=== PATIENT | female | born 1940 | race Caucasian/White ===

== ENCOUNTER → 2019-03-13 | Outpatient (CLI) | payer MEDICARE ==
[~2019-03-13] MED LIST: ALBU8.5H8 INH; AMLO-150 PO; FLUT1DIS3 INH; SPIR50TA4 PO
[2019-03-13 12:44] LABS: BASOPHILS # (AUTO) 0.04 x10^3/uL (0-0.1); BASOPHILS % (AUTO) 1 % (0-1); EOSINOPHILS # (AUTO) 0.09 x10^3/uL (0-0.4); EOSINOPHILS % (AUTO) 1 % (1-7); LYMPHOCYTES # (AUTO) 1.61 x10^3/uL (1-3.4); LYMPHOCYTES % (AUTO) 22 % (22-44); MD NO; MEAN CORPUSCULAR HEMOGLOBIN 33.6 pg (27.0-34.8); MEAN CORPUSCULAR HGB CONC 33.3 g/dL (32.4-35.8); MEAN PLATELET VOLUME 8.2 fL (7.4-10.4); MONOCYTES % (AUTO) 8 % (2-9); NEUTROPHILS # (AUTO) 4.87 x10^3/uL (1.8-6.8); NEUTROPHILS % (AUTO) 68 % (42-75); PLATELET COUNT 324 x10^3/uL (130-400); RED BLOOD COUNT 4.47 x10^6/uL (3.82-5.3); RED CELL DISTRIBUTION WIDTH 13.6 % (9.6-15.2)
[2019-03-13 12:54] LABS: ANION GAP 7 mmol/L (5-15); CALCIUM 9.1 mg/dL (8.5-10.1); CHLORIDE 103 mmol/L (98-107); CREATININE 0.79 mg/dL (0.55-1.02)
== END | disposition home or self-care (01) ==
LOC: STAR 11:25
PROVIDERS: ATTEND Orthopaedic Surgery
DX: Z01.818 Encounter for other preprocedural examination (principal); M17.11 Unilateral primary osteoarthritis, right knee; R94.31 Abnormal electrocardiogram [ECG] [EKG]
CPT/HCPCS: 36415; 80048; 85025; 87081; 93005

== ENCOUNTER 2019-03-24 07:54 | Inpatient (IN) | payer MEDICARE ==
[~2019-03-24] VITALS: Ht 160 cm; Wt 62.0 kg
[~2019-03-24 07:54] MED LIST changes: +EPINEPHRINE 1 MG/ML, 1ML ONE; +KETOROLAC 60 MG/2 ML ONE; +ROPIvacaine/PF 0.2%, 20 ML ONE; +SODIUM CHLORIDE 0.9% 50 ML ONE; +TRANEXAMIC ACID 100 MG/ML, 10ML ONE
[2019-03-24] MEDS ORDERED: LACTATED RINGERS 1,000 ML IV SCH (08:43)
[2019-03-24] MEDS ORDERED: GABAPENTIN 300 MG CAPSULE PO ONE (09:00)
[2019-03-24] MEDS ORDERED: ACETAMINOPHEN 500 MG TABLET PO ONE (09:00)
[2019-03-24] MEDS ORDERED: FENTANYL PF 250 MCG/5ML ONE (10:02)
[2019-03-24] MEDS ORDERED: MIDAZOLAM 1 MG/ML, 2ML ONE (10:02)
[2019-03-24] MEDS ORDERED: DEXAMETHASONE 4 MG/ML, 1ML ONE (11:56)
[2019-03-24] MEDS ORDERED: ONDANSETRON 2MG/ML, 2ML ONE (11:56)
[2019-03-24] MEDS ORDERED: PROPOFOL 10 MG/ML, 20ML ONE (11:56)
[2019-03-24] MEDS ORDERED: CEFAZOLIN 1,000 MG ONE (11:56)
[2019-03-24] MEDS ORDERED: HYDROmorphone 2 MG/ML, 1ML IVPush PRN ×2 (12:00→13:00)
[2019-03-24] MEDS ORDERED: hydrALAzine 20 MG/ML, 1ML IV PRN ×2 (12:00→13:30)
[2019-03-24] MEDS ORDERED: ALBUTEROL SULFATE 2.5 MG/3 ML NPPB PRN ×2 (12:00→14:30)
[2019-03-24] MEDS ORDERED: OXYcodone 5 MG/5 ML ORAL.SOL UDC PO PRN (12:00)
[2019-03-24] MEDS ORDERED: ALBUTEROL/IPRATROPIUM 2.5MG/0.5MG, 3 ML NPPB PRN (12:00)
[2019-03-24] MEDS ORDERED: METOPROLOL 1 MG/ML, 5ML IV PRN (12:00)
[2019-03-24] MEDS ORDERED: ONDANSETRON 2MG/ML, 2ML IV PRN (12:00)
[2019-03-24] MEDS ORDERED: FENTANYL PF 100 MCG/2ML IV PRN (12:00)
[2019-03-24] MEDS ORDERED: MIDAZOLAM 1 MG/ML, 2ML IV PRN (12:00)
[2019-03-24] MEDS ORDERED: TRANEXAMIC ACID 1,000 MG in SODIUM CHLORIDE 0.9% 100 ML IVPB ONE (12:55)
[2019-03-24] MEDS ORDERED: ONDANSETRON 2MG/ML, 2ML IVPush PRN (13:00)
[2019-03-24] MEDS ORDERED: HYDROcodone/APAP 5/325 TABLET PO PRN (13:00)
[2019-03-24] MEDS ORDERED: DIAZEPAM 5 MG TABLET PO PRN (13:00)
[2019-03-24] MEDS ORDERED: DIPHENHYDRAMINE 50 MG CAPSULE PO PRN (13:00)
[2019-03-24] MEDS ORDERED: SENNA/DOCUSATE TABLET PO PRN (13:00)
[2019-03-24] MEDS ORDERED: ALUMINUM/MAG/SIMETHICONE 30 ML UDC PO PRN (13:00)
[2019-03-24] MEDS ORDERED: ZOLPIDEM 5MG TABLET PO PRN (13:00)
[2019-03-24] MEDS ORDERED: POLYETHYLENE GLYCOL 17 GM PACKET PO PRN (13:00)
[2019-03-24] MEDS ORDERED: PSYLLIUM PACKET PO PRN (13:00)
[2019-03-24] MEDS ORDERED: MAGNESIUM HYDROXIDE 8%, 30ML UDC PO PRN (13:00)
[2019-03-24] MEDS ORDERED: PROMETHAZINE 25 MG/ML, 1ML IM PRN (13:00)
[2019-03-24] MEDS ORDERED: PROMETHAZINE 12.5 MG SUPP PR PRN (13:00)
[2019-03-24] MEDS ORDERED: BISACODYL 10 MG SUPP PR PRN (13:00)
[2019-03-24] MEDS: ACETAMINOPHEN 500 MG TABLET PO SCH ×3 (13:00→22:56)
[2019-03-24] MEDS ORDERED: ONDANSETRON 4 MG TABLET PO PRN (13:00)
[2019-03-24] MEDS: KETOROLAC 30 MG/1 ML IV SCH ×2 (14:00→22:56)
[2019-03-24] MEDS: CALCIUM/VITAMIN D3 250-125 TABLET PO SCH (17:12)
[2019-03-24] MEDS: FERROUS SULFATE 325 MG TABLET PO SCH (17:12)
[2019-03-24] MEDS: D5%-0.45% NACL 1,000 ML IV SCH (17:13)
[2019-03-24 19:29] VITALS: BP 117/63
[2019-03-24] MEDS: CEFAZOLIN PMX 1GM/50ML 50 ML IVPB SCH (20:26)
[2019-03-24] MEDS: DOCUSATE 100 MG CAPSULE PO SCH (20:27)
[2019-03-24] MEDS: ASPIRIN 81 MG TABLET EC PO SCH (20:27)
[2019-03-24] MEDS: ALBUTEROL SULFATE 2.5 MG/3 ML NPPB SCH (22:30)
[2019-03-25 00:27] VITALS: BP 110/64
[2019-03-25] MEDS: D5%-0.45% NACL 1,000 ML IV SCH ×2 (01:10→08:41)
[2019-03-25] MEDS: ALBUTEROL SULFATE 2.5 MG/3 ML NPPB SCH ×3 (03:24→14:20)
[2019-03-25 03:37] VITALS: BP 110/52
[2019-03-25] MEDS: CEFAZOLIN PMX 1GM/50ML 50 ML IVPB SCH (03:59)
[2019-03-25] MEDS: ACETAMINOPHEN 500 MG TABLET PO SCH ×2 (05:24→11:40)
[2019-03-25] MEDS ORDERED: DEXAMETHASONE 4 MG/ML, 1ML IVPush ONE (06:00)
[2019-03-25] MEDS: KETOROLAC 30 MG/1 ML IV SCH (06:42)
[2019-03-25 06:56] VITALS: BP 110/51
[2019-03-25] MEDS: ASPIRIN 81 MG TABLET EC PO SCH (08:39)
[2019-03-25] MEDS: FERROUS SULFATE 325 MG TABLET PO SCH (08:39)
[2019-03-25] MEDS: CALCIUM/VITAMIN D3 250-125 TABLET PO SCH ×3 (08:39→16:46)
[2019-03-25] MEDS: DOCUSATE 100 MG CAPSULE PO SCH (08:39)
[2019-03-25] MEDS ORDERED: SPIRONOLACTONE 50 MG TABLET PO SCH (09:00)
[2019-03-25] MEDS ORDERED: AMLODIPINE 5 MG TABLET PO SCH (09:00)
[2019-03-25] MEDS ORDERED: MULTIVITAMINS/MINERALS TABLET PO SCH (09:00)
[2019-03-25] MEDS ORDERED: ALBUTEROL SULFATE 2.5 MG/3 ML NPPB SCH (09:00)
[2019-03-25] MEDS ORDERED: BUDESONIDE 0.5 MG/2 ML INHA NPPB SCH (09:00)
[2019-03-25] MEDS ORDERED: ASCORBIC ACID 500 MG TABLET PO SCH (09:00)
[2019-03-25 09:56] LABS: BASOPHILS % (AUTO) 0 % (0-1); EOSINOPHILS % (AUTO) 1 % (1-7); LYMPHOCYTES # (AUTO) 0.33 x10^3/uL (1-3.4); LYMPHOCYTES % (AUTO) 2 % (22-44); MD NO; MEAN CORPUSCULAR HEMOGLOBIN 33.6 pg (27.0-34.8); MEAN CORPUSCULAR VOLUME 101.7 fL (80-100); MEAN PLATELET VOLUME 8.8 fL (7.4-10.4); MONOCYTES % (AUTO) 2 % (2-9); NEUTROPHILS # (AUTO) 13.95 x10^3/uL (1.8-6.8); NEUTROPHILS % (AUTO) 94 % (42-75); PLATELET COUNT 220 x10^3/uL (130-400); RED BLOOD COUNT 3.72 x10^6/uL (3.82-5.3); RED CELL DISTRIBUTION WIDTH 13.1 % (9.6-15.2)
[2019-03-25 10:04] LABS: ANION GAP 12 mmol/L (5-15); CALCIUM 8.8 mg/dL (8.5-10.1); CHLORIDE 104 mmol/L (98-107)
[2019-03-25 10:06] LABS: CREATININE 0.97 mg/dL (0.55-1.02)
[2019-03-25 14:24] VITALS: BP 109/62
== END 2019-03-25 16:50 | disposition home or self-care (01) | DRG 470 ==
LOC: OR 07:54 → 4NOR 12:31
PROVIDERS: ADMIT Orthopaedic Surgery; ATTEND Orthopaedic Surgery
PROC: 3E0T3BZ Introduction of Anesthetic Agent into Peripheral Nerves and Plexi, Percutaneous Approach (ICD-10-PCS; 2019-03-24)
PROC: 0SRC0J9 Replacement of Right Knee Joint with Synthetic Substitute, Cemented, Open Approach (ICD-10-PCS; principal; 2019-03-24 11:00)
DX: M17.11 Unilateral primary osteoarthritis, right knee (principal); J96.11 Chronic respiratory failure with hypoxia; I10 Essential (primary) hypertension; J44.9 Chronic obstructive pulmonary disease, unspecified; Z96.652 Presence of left artificial knee joint; Z99.81 Dependence on supplemental oxygen; Z87.891 Personal history of nicotine dependence; Z88.2 Allergy status to sulfonamides; Z88.1 Allergy status to other antibiotic agents; Z91.041 Radiographic dye allergy status; Z88.7 Allergy status to serum and vaccine; Z79.899 Other long term (current) drug therapy
CPT/HCPCS: 36415; 71045; 80048; 85014; 85018; 85025; 94640; C1713; G0378; J0171; J0690; J1100; J1885; J2250; J2405; J2704; J2795; J3010; J7613; C1776; J7120